=== PATIENT | male | born 1935 | race Caucasian/White ===

== ENCOUNTER 2017-04-15 04:44 | Day surgery (SDC) | payer OTHER ==
[~2017-04-15] VITALS: Ht 177.8 cm; Wt 71.7 kg
[2017-04-15 06:50] LABS: BASOPHILS 0.7 % (0-2); EOSINOPHILS 5.9 % (0-7); HEMATOCRIT 43.1 % (42.0-54.0); HEMOGLOBIN 14.5 g/dL (13.5-17.5); IMMATURE GRANULOCYTES 0.2 % (0-5); LYMPHOCYTES 34.2 % (15-50); MCH 31.5 pg (26.0-34.0); MCHC 33.6 g/dL (31.0-37.0); MCV 93.5 fL (80.0-100.0); MEAN PLATELET VOLUME 10.3 fL (7.4-10.4); MONOCYTES 13.8 % (2-11); NEUTROPHILS 45.2 % (40-80); PLATELET COUNT 144 10x3/uL (130-400); RBC 4.61 10x6/uL (4.20-6.10); WBC 4.1 10x3/uL (4.8-10.8)
[2017-04-15] MEDS ORDERED: ACETAMINOPHEN325 MG PO (06:50)
[2017-04-15] MEDS ORDERED: ARTIFICIAL TEAR15 ML EACH EYE (06:52)
[2017-04-15] MEDS ORDERED: PROVENTIL/2.5 MG/3 M INH (06:52)
[2017-04-15] MEDS ORDERED: ASPIRIN325 MG PO (06:53)
[2017-04-15] MEDS ORDERED: TUMS500 MG PO (06:54)
[2017-04-15] MEDS ORDERED: PLAVIX75 MG PO (06:54)
[2017-04-15] MEDS ORDERED: FUROSEMIDE40 MG PO (06:55)
[2017-04-15] MEDS ORDERED: CARDIZEM CD180 MG PO (06:55)
[2017-04-15] MEDS ORDERED: LISINOPRIL5 MG PO (06:56)
[2017-04-15] MEDS ORDERED: SINGULAIR10 MG PO (06:57)
[2017-04-15] MEDS ORDERED: METOPROLOL TART25 MG PO (06:57)
[2017-04-15] MEDS ORDERED: MULTIPLE VITAMI1 TA1 PO (06:58)
[2017-04-15] MEDS ORDERED: NITROSTAT0.4 MG SL (06:58)
[2017-04-15] MEDS ORDERED: OMEPRAZOLE20 M1 PO (06:59)
[2017-04-15] MEDS ORDERED: PROAIR HFA8.5 GM INH (07:00)
[2017-04-15] MEDS ORDERED: ALDACTONE25 MG PO (07:01)
[2017-04-15] MEDS ORDERED: SEREVENT D50 MCG/DIS INH (07:01)
[2017-04-15] MEDS ORDERED: ZOCOR40 MG PO (07:01)
[2017-04-15 07:09] LABS: ANION GAP 10.3 mmol/L (8-16); CALCIUM 8.8 mg/dL (8.5-10.1); CARBON DIOXIDE 30.5 mmol/L (21.0-32.0); CREATININE - SERUM 1.4 mg/dL (0.6-1.3); POTASSIUM - SERUM 3.8 mmol/L (3.5-5.1)
[2017-04-15 07:13] VITALS: BP 172/74; Ht 177.8 cm; Wt 71.7 kg
--- NOTE | 2017-04-15 12:40 | NUR ---
UP TO RESTROOM. VOIDS. WILL CONTINUE TO MONITOR.
--- NOTE | 2017-04-17 11:49 | OP ---
PATIENT NAME: MAT OZUNA MEDICAL RECORD: [id number] :35 [facility] [place] AD[facility]ION DATE: SURGEON: GRAZYNA RAYGOZA MD DATE OF OPERATION: 04/15/2017 PREOPERATIVE DIAGNOSIS: Symptomatic left inguinal hernia. POSTOPERATIVE DIAGNOSIS: Symptomatic left indirect inguinal hernia. PROCEDURE: Open left indirect inguinal herniorrhaphy with bilayer preperitoneal polypropylene mesh. SURGEON: Grazyna Raygoza M.D. LEAD TELLER: None. BLOOD LOSS: Minimal. ANESTHESIA: General. COMPLICATIONS: None. The risks, possible complications and alternatives to the procedure were explained to the patient. He elects to proceed. OPERATIVE COURSE: The patient was conveyed to the operating room electively on 04/15/2017. General anesthesia was induced by the anesthesia staff. The abdomen and genitals were sterilely prepped and draped. A transverse incision was accomplished in the left groin. Sharp dissection was carried down through the skin and subcutaneous tissue as well as Shree fascia. The external oblique aponeurosis was then opened along the direction of its fibers. I bluntly dissected down through the internal oblique and transversus abdominis muscle layers, both of which were very thin. A preperitoneal pocket was fashioned bluntly. An indirect hernia was reduced in its entirety. There was no direct hernia defect. I then cut 2 ovals out of a polypropylene mesh. The 2 ovals were sutured, one on top of the other with a running #1 Surgidac. The mesh was placed in the preperitoneal space. Once I was satisfied with placement of the mesh, I allowed the muscular layers to be closed over the mesh incorporating a portion of the mesh with these sutures, which were 0 Surgidac sutures in a horizontal mattress fashion. At no time was there any apparent nervous injury during this operation. The external oblique aponeurosis was then closed with running #1 Vicryls. Shree fascia was approximated with interrupted 3-0 Vicryls. The subdermis was approximated with interrupted 3-0 Vicryls. The skin was approximated with a running intracuticular 4-0 Vicryl. Benzoin and Steri-Strips were applied. The patient was then extubated and conveyed to the post-anesthesia care unit where he was in stable condition. There will be no need for him to follow up with me in the office unless he develops a complication related to this operative procedure. He is going to be dismissed home on hydrocodone. He will be transferred back to the detention. TRANSINT:[id number] Voice Confirmation ID: [id number] DOCUMENT ID: [id number] OPERATIVE REPORT [id number] MAT OZUNA ROBERT MD at 1149 CC: GRAZYNA LOMELI MD, CARLOS ARZATE STIEVE, JEFFREY MD and [facility],[id number] DICTATION DATE: 04/15/17 1008 PASTRY BAKER: 04/15/17 1253 [facility] [place] 04/15/17 [id number] [place] [address]
--- NOTE | 2017-04-17 11:49 | HP ---
PATIENT: MAT OZUNA MEDICAL RECORD: [id number] ACCOUNT: [id number] LOCATION:[facility] : 35 ADMISSION DATE: 04/15/17 HISTORY AND PHYSICAL EXAMINATION CHIEF COMPLAINT: Hernia. HISTORY OF PRESENT ILLNESS: The patient has an enlarging left inguinal hernia. He has had increasing pain. He was seen in jail by me and a consultation was performed. I recommended a left inguinal hernia repair with mesh. The risks, possible complications and alternatives to the procedure were explained to the patient. He elects to proceed. The discussion specifically included, but was not limited to, bleeding requiring an emergency reoperation, infection, injury to the testicular artery or vein, chronic pain as well as hernia recurrence. I specifically told the patient that we would be using mesh in order to decrease the chance of a hernia recurrence. A pseudo-sac hematoma or seroma would be an expected finding after this operation. MEDICATIONS: In the jail: Acetaminophen, albuterol, artificial tears, aspirin, calcium, Plavix, he has been off Plavix for several days; diltiazem, furosemide, lisinopril, metoprolol, Montelukast Sodium Tablets, multivitamin with iron, Nitrostat, omeprazole, ProAir inhaler, Serevent Diskus, simvastatin and spironolactone. PAST MEDICAL AND SURGICAL HISTORY: Arthritis, borderline diabetes, gastroesophageal reflux which is controlled, history of 9 coronary artery stents, history of 2 myocardial infarctions, history of angina, coronary artery disease, hypertension, congestive heart failure and mild stroke in the past. ALLERGIES: No known drug allergies. SOCIAL HISTORY: Ex-smoker. He has got a 22-waen-anua history. His last Plavix was on April 13. PHYSICAL EXAMINATION: GENERAL: The patient does not appear acutely ill. He does appear chronically ill. VITAL SIGNS: Reviewed. HEAD: External ears appear normal. EYES: Extraocular movements are intact. NECK: Trachea is midline. CHEST: No intercostal retractions. PULMONARY: Nonlabored, no stridor. ABDOMEN: Nontender. GENITOURINARY: Distended testicles. Left inguinal hernia. IMPRESSION: Symptomatic enlarging left inguinal hernia. PLAN: Open left inguinal hernia repair with mesh. TRANSINT:[id number] Voice Confirmation ID: [id number] DOCUMENT ID: [id number] HISTORY AND PHYSICAL [id number] MAT OZUNA ROBERT MD at 1149 CC: GRAZYNA LOMELI MD, CARLOS ARZATE STIEVE, JEFFREY MD and [facility],[id number] DICTATION DATE: 04/15/17828 SENIOR ETL DEVELOPER: 04/15/17 0941 [facility] 04/15/17 [place] [id number] [place] [id number]
== END 2017-04-15 13:05 ==
LOC: D.OPS 04:44
PROVIDERS: Anesthesiology
DX: K40.90 Unilateral inguinal hernia, without obstruction or gangrene, not specified as recurrent (principal); I25.10 Atherosclerotic heart disease of native coronary artery without angina pectoris; I11.0 Hypertensive heart disease with heart failure; I50.9 Heart failure, unspecified; E11.9 Type 2 diabetes mellitus without complications; Z01.812 Encounter for preprocedural laboratory examination; J44.9 Chronic obstructive pulmonary disease, unspecified; Z95.5 Presence of coronary angioplasty implant and graft; K21.9 Gastro-esophageal reflux disease without esophagitis

== ENCOUNTER 2018-09-08 04:55 | Day surgery (SDC) | payer OTHER ==
[~2018-09-08] VITALS: Ht 177.8 cm; Wt 67.6 kg
[~2018-09-08 04:55] MED LIST: ACETAMINOPHEN325 MG PO; ALDACTONE25 MG PO; ARTIFICIAL TEAR15 ML EACH EYE; ASPIRIN325 MG PO; CARDIZEM CD180 MG PO; FUROSEMIDE40 MG PO; LISINOPRIL5 MG PO; METOPROLOL TART25 MG PO; MULTIPLE VITAMI1 TA1 PO; NITROSTAT0.4 MG SL; OMEPRAZOLE20 M1 PO; PLAVIX75 MG PO; PROAIR HFA8.5 GM INH; PROVENTIL/2.5 MG/3 M INH; SEREVENT D50 MCG/DIS INH; SINGULAIR10 MG PO; TUMS500 MG PO; ZOCOR40 MG PO
[2018-09-08] MEDS ORDERED: ZANTAC300 MG PO (06:51)
[2018-09-08] MEDS ORDERED: ADVAIR HFA 230-12 GM INH (06:53)
[2018-09-08] MEDS ORDERED: FLOMAX0.4 MG PO (06:54)
[2018-09-08] MEDS ORDERED: STERAPRED DS 1010 MG PO (06:55)
[2018-09-08 07:01] LABS: BASOPHILS 1.3 % (0-2); EOSINOPHILS 6.2 % (0-7); HEMATOCRIT 41.6 % (42.0-54.0); HEMOGLOBIN 13.9 g/dL (13.5-17.5); IMMATURE GRANULOCYTES 0.2 % (0-5); LYMPHOCYTES 24.4 % (15-50); MCH 30.7 pg (26.0-34.0); MCHC 33.4 g/dL (31.0-37.0); MCV 91.8 fL (80.0-100.0); MEAN PLATELET VOLUME 10.9 fL (7.4-10.4); MONOCYTES 12.4 % (2-11); NEUTROPHILS 55.5 % (40-80); PLATELET COUNT 153 10x3/uL (130-400); RBC 4.53 10x6/uL (4.20-6.10); RDW 13.2 % (11.5-14.5); WBC 5.5 10x3/uL (4.8-10.8)
[2018-09-08 07:03] VITALS: BP 158/98; Ht 177.8 cm; Wt 67.6 kg
[2018-09-08 07:14] LABS: ANION GAP 15.7 mmol/L (8-16); CALCIUM 9.1 mg/dL (8.5-10.1); CARBON DIOXIDE 26.3 mmol/L (21.0-32.0); CREATININE - SERUM 1.1 mg/dL (0.6-1.3)
--- NOTE | 2018-09-08 11:00 | NUR ---
REC'D FROM RR. DRESSING TO RIGHT GROIN CDI.[facility] OFFICERS AT BEDSIDE. COLA AND FL TRAY BROUGHT TO PT.
--- NOTE | 2018-09-08 11:30 | NUR ---
TOLERATING DIET. NO VOID. [facility] OFFICERS AT BEDSIDE.
--- NOTE | 2018-09-08 13:00 | NUR ---
C/O BACKPAIN AND PT HAD A SPINAL FOR PROCEDURE D/T CARDIAC HX. NICHO HWANG CRNA SAW PATIENT. EXPLAINED TO NURSE HE DOES NOT FEEL IT IS SPINAL RELATED D/T PAIN BEING LOCATED OPPOSITE OF SPINAL SITE. RELATESFIF HE HAS A PAIN MED TO ADMINISTER THAT. PATIENT RELATES IT IS FROM LAYING IN THE BED FOR SO LONG. PATIENT'S FEELINGS TO LEGS HAVE RETURNED AND AMBULATED TO BATHROOM AND VOIDED.
--- NOTE | 2018-09-08 13:10 | NUR ---
DILAUDID 2MG ADMINISTERED PO PER ORDERS. RATES PAIN 4-5/10. RELATES HAS NEVER HAD DILAUDID. WILL MONITOR FOR 30 MINUTES POST ADMINISTRATION.
--- NOTE | 2018-09-08 13:15 | NUR ---
IV DC'D WITH CATHETER INTACT. EXPLAINED TO [facility] OFFICERS THE H & P AND OPERATIVE HAS NOT BEEN DICTATED AT THIS TIME BUT DOT IN [employer] CROPS RELATES SHE WILL FAX IT TO THE FACILITY WHEN COMPLETED. VERBALIZED UNDERSTANDING.
--- NOTE | 2018-09-08 13:25 | NUR ---
WRITTEN AND VERBAL DC INST GIVEN TO PT AND [facility] OFFICERS ALONG WITH RX. VERBALIZED UNDERSTANDING.
--- NOTE | 2018-09-08 13:30 | NUR ---
PT RELATES PAIN 0/10 AFTER DILAUDID.
--- NOTE | 2018-09-08 13:45 | NUR ---
DC'D TO [facility] FACILITY ACCOMPANIED BY [facility] OFFICERS VIA FACILITY VEHICLE. TAKEN TO VEHICLE VIA WC. STABLE AT TIME OF DC.
--- NOTE | 2018-09-09 16:53 | OP ---
PATIENT NAME: MAT OZUNA MEDICAL RECORD: [id number] :35 [facility] AD[facility] DATE: SURGEON: GRAZYNA RAYGOZA MD DATE OF OPERATION: 09/08/2018 PREOPERATIVE DIAGNOSIS: Symptomatic right inguinal hernia. POSTOPERATIVE DIAGNOSIS: Symptomatic indirect right inguinal hernia. PROCEDURES: Open right inguinal hernia repair with bilayer polypropylene mesh. SURGEON: Grazyna Raygoza MD MEDICAL PLANNER: None. BLOOD LOSS: Minimal. ANESTHESIA: General. COMPLICATIONS: None. The risks, possible complications and alternatives to procedure were explained to the patient. He elects to proceed. The discussion specifically included, but was not limited to, bleeding requiring emergency reoperation, infection, chronic pain, reherniation, mesh erosion. We also discussed the probability that the patient would develop a seroma or hematoma in the pseudo sac. OPERATIVE COURSE: The patient was conveyed to the operating room electively on 09/08/2018. General anesthesia was induced by the anesthesia staff. The abdomen and genitals were sterilely prepped and draped. A transverse incision was accomplished in the right groin. Sharp dissection was carried down through the skin and subcutaneous tissues as well as Shree fascia. The external oblique aponeurosis was incised along the direction of its fibers. I bluntly dissected down through the internal oblique and transversus abdominis muscles. A preperitoneal pocket was fashioned bluntly. I reduced an indirect inguinal hernia in its entirety. There was no direct component. No femoral component. I opened the hernia sac. There was no sliding component. No incarceration. I then ligated the sac highly with a pursestring 3-0 Vicryl suture. I divided the sac distal to this. I then cut 2 ovals out of polypropylene mesh. The 2 ovals were sutured together one on top of the other with a running #1 Surgidac. The mesh was placed in the preperitoneal space. Once I was satisfied with placement of the mesh, I allowed the internal oblique and transverse abdominis muscle layers to come together. These were sutured together with multiple interrupted horizontal mattress 0 Surgidacs incorporating a portion of the underlying mesh. The external oblique aponeurosis was closed with running #1 Vicryls. The Shree's fascia was approximated with interrupted 3-0 Vicryls. The subdermis was approximated with interrupted 3-0 Vicryls. The skin was approximated with a running intracuticular 4-0 Vicryl. Benzoin and Steri-Strips were applied. OPERATIVE REPORT [id number] MAT OZUNA The patient was then extubated and conveyed to post-anesthesia care unit where he was in stable condition. My hope is that the patient would do no lifting or straining for about 3 weeks. I dismissed him back to the [facility] with a prescription for hydrocodone as well as Colace. There is no need for him to follow up with me in the office unless he develops a complication related to this operative procedure. TRANSINT:[id number] Voice Confirmation ID: [id number] DOCUMENT ID: [id number] GRAZYNA RAYGOZA MD at 1653 CC: SUE DURAN MD, GRAZYNA LOMELI MD, HIPOLITO VELEZ MD and [id number] L DICTATION DATE: 09/09/18 1205 MAIL DISTRIBUTOR: 09/09/18 1219 [facility] 09/08/18 [place] [id number] [place] [address]
== END 2018-09-08 13:45 | disposition home or self-care (01) ==
LOC: D.OPS 04:55
PROVIDERS: Surgery
DX: K40.90 Unilateral inguinal hernia, without obstruction or gangrene, not specified as recurrent (principal); Z01.812 Encounter for preprocedural laboratory examination